=== PATIENT | male | born 1965 | race Caucasian/White ===

== ENCOUNTER → 2017-03-27 | Outpatient (POV) | payer OTHER, SELFPAY | PROVIDERS: Visit Provider Internal Medicine | DX: I10 Essential (primary) hypertension (principal); R53.83 Other fatigue; G47.33 Obstructive sleep apnea (adult) (pediatric) | CPT/HCPCS: 93005 ==

== ENCOUNTER 2017-05-13 20:15 | Emergency (ER) | payer OTHER, SELFPAY ==
[2017-05-13 23:24] VITALS: BP 130/72; PULSE 74; RESP 20; TEMP 36.9; O2SAT 98; BMI 34.3
[2017-05-13 23:34] LABS: UTC Influenza A Antigen Negative (Negative); UTC Influenza B Antigen Negative (Negative)
--- NOTE | 2017-05-14 00:10 | HMH.EDUTC ---
[facility] [place] Disposition Clinical Impression: Acute bronchitis Qualifiers: Bronchitis organism: unspecified organism Qualified Code(s): J20.9 - Acute bronchitis, unspecified Disposition: Home, Self-Care Condition on Discharge: Good Instructions: DI for Acute Bronchitis Additional Instructions: * start antibiotic due to chest symptoms. IF this is the flu, you will continue to get worse so be sure to follow up. Be sure to complete entire prescription even if feeling better. * Monitor Temp. Feeling feverish and having a fever are not the same. Fevers would be more concerning. * humidifier/vaporizer/hot steamy shower * Inhaler every 4-6 hours as needed like we discussed. If unsure how to use it, ask pharmacist to demonstrate how. Should help open airways and improve cough, wheezing, shortness of breath. * Mucinex during the day for your cough and cough suppressant only at night. Be sure to drink lots of water. Insurance may not cover a prescription of mucinex. Might be cheaper to get 400mg tablets and take 2 tablets morning, midday and evening all with lots of water. * Tessalon Perles will not cause drowsiness but use at bedtime to help stop cough so that you can get some rest * Start steroid today. Helps with inflammation therefore, cough and wheezing. Follow directions on package. Rvwd side effects. Pt reports they have taken them before. Prescriptions: Albuterol Sulfate [Albuterol HFA Inhaler] 1 - 2 puffs IH Q4-6H PRN #1 inh PRN Reason: Shortness Of Breath Or Wheezing Azithromycin [Z-Toni 250mg Tab] 250 mg PO UD DOSE PK #6 tab Benzonatate [Benzonatate 200mg Cap] 200 mg PO HS PRN #14 cap PRN Reason: Cough predniSONE [Deltasone 10mg tablet] 10 mg PO BID #10 tab Referrals: Gonzalo Ram MD [Primary Care Provider] - (Follow up IMMEDIATELY for new or worsening symptoms OR no noticeable improvement over the next 48-72 hours. 911 for difficulty breathing) Time of Disposition: 00:23 Medical Decision Making Vital Signs: 05/13/17 23:24 05/14/17 00:18 Temperature 98.5 F 98.4 F Temperature Source Temporal Artery Scan Oral Pulse Rate 78 Pulse Rate [Right Radial] 74 Respiratory Rate 20 18 Blood Pressure 128/78 Blood Pressure [Right Arm] 130/72 Blood Pressure Mean [Right Arm] 91 Blood Pressure Source [Right Arm] Automatic Cuff Blood Pressure Position [Right Arm] Sitting 02 Sat by Pulse Oximetry 98 Oxygen Delivery Method Room Air Room Air - Lab Data Lab results reviewed: Yes: I reviewed the patient's lab results. Lab Results 05/13/17 23:32: Influenza Type A Ag Negative, Influenza Type B Ag Negative - Physician Consults Physician Consulted: Dr. Ram, PCP and ER MD ramirez Time: 12:00 Reason -: Pt condition Comment/Response: Discussed HPI, PMHx, medications, exam. Feels azithromycin and prednisone are appropriate considering PMHx and current symptoms. - Mp Inquiry Pt receiving controlled substance: No [facility] [place] HPI - General Stated complaint: to be checked for flu Time Seen by Provider: 05/14/17 00:10 Mode of Arrival: Family Vehicle Source of Information: Patient Limitations: No Limitations Description of Symptoms (Recalled from Triage Doc. by RN): PT C/O FLU LIKE SYMPTOMS. HEENT Symptoms (Recalled from RN notes): Yes (FLU LIKE SYMPTOMS) Resp Symptoms (Recalled from RN notes): No Skin Symptoms (Recalled from RN notes): No MS Symptoms (Recalled from RN notes): No Functional Status (Recalled from RN notes): NA - History of Present Illness Provider Complaint: c/o I think I have the flu . Daughter came home w/ flu B. cough and chest congestion x 1 week. Sputum intermittently. Mucinex was helping. Last 2 days, cough not productive but feels like in there and needs to come out . Not sleeping well due to cough. [place] feverish today so got worried about flu.No bodyaches. Denies SOA, wheezing. Hx of HCM. Denies CP. - Related Data Previous Rx's Medication Instructions Recorded Albuterol Sulfate
[2017-05-14 00:18] VITALS: BP 128/78; PULSE 78; RESP 18; TEMP 36.9; O2SAT 97
--- NOTE | 2017-05-14 00:20 | ED_ITS ---
[facility] [place] Clinical Impression: Acute bronchitis Qualifiers: Bronchitis organism: unspecified organism Qualified Code(s): J20.9 - Acute bronchitis, unspecified Disposition: Home, Self-Care Condition on Discharge: Good Instructions: DI for Acute Bronchitis Additional Instructions: * start antibiotic due to chest symptoms. IF this is the flu, you will continue to get worse so be sure to follow up. Be sure to complete entire prescription even if feeling better. * Monitor Temp. Feeling feverish and having a fever are not the same. Fevers would be more concerning. * humidifier/vaporizer/hot steamy shower * Inhaler every 4-6 hours as needed like we discussed. If unsure how to use it, ask pharmacist to demonstrate how. Should help open airways and improve cough, wheezing, shortness of breath. * Mucinex during the day for your cough and cough suppressant only at night. Be sure to drink lots of water. Insurance may not cover a prescription of mucinex. Might be cheaper to get 400mg tablets and take 2 tablets morning, midday and evening all with lots of water. * Tessalon Perles will not cause drowsiness but use at bedtime to help stop cough so that you can get some rest * Start steroid today. Helps with inflammation therefore, cough and wheezing. Follow directions on package. Rvwd side effects. Pt reports they have taken them before. Prescriptions: Albuterol Sulfate [Albuterol HFA Inhaler] 1 - 2 puffs IH Q4-6H PRN #1 inh PRN Reason: Shortness Of Breath Or Wheezing Azithromycin [Z-Toni 250mg Tab] 250 mg PO UD DOSE PK #6 tab Benzonatate [Benzonatate 200mg Cap] 200 mg PO HS PRN #14 cap PRN Reason: Cough predniSONE [Deltasone 10mg tablet] 10 mg PO BID #10 tab Referrals: Gonzalo Ram MD [Primary Care Provider] - (Follow up IMMEDIATELY for new or worsening symptoms OR no noticeable improvement over the next 48-72 hours. 911 for difficulty breathing) Time of Disposition: 00:23 Medical Decision Making Vital Signs: 05/13/17 23:24 05/14/17 00:18 Temperature 98.5 F 98.4 F Temperature Source Temporal Artery Scan Oral Pulse Rate 78 Pulse Rate [Right Radial] 74 Respiratory Rate 20 18 Blood Pressure 128/78 Blood Pressure [Right Arm] 130/72 Blood Pressure Mean [Right Arm] 91 Blood Pressure Source [Right Arm] Automatic Cuff Blood Pressure Position [Right Arm] Sitting 02 Sat by Pulse Oximetry 98 Oxygen Delivery Method Room Air Room Air - Lab Data Lab results reviewed: Yes: I reviewed the patient's lab results. Lab Results 05/13/17 23:32: Influenza Type A Ag Negative, Influenza Type B Ag Negative - Physician Consults Physician Consulted: Dr. Ram, PCP and ER MD ramirez Time: 12:00 Reason -: Pt condition Comment/Response: Discussed HPI, PMHx, medications, exam. Feels azithromycin and prednisone are appropriate considering PMHx and current symptoms. - Mp Inquiry Pt receiving controlled substance: No [facility] [place] - General Stated complaint: to be checked for flu Time Seen by Provider: 05/14/17 00:10 Mode of Arrival: Family Vehicle Source of Information: Patient Limitations: No Limitations Description of Symptoms (Recalled from Triage Doc. by RN): PT C/O FLU LIKE SYMPTOMS. HEENT Symptoms (Recalled from RN notes): Yes (FLU LIKE SYMPTOMS) Resp Symptoms (Recalled from RN notes): No Skin Symptoms (Recalled from RN notes): No MS Symptoms (Recalled from RN notes): No Functional Status (Recalled from RN notes): NA - Histo
== END 2017-05-14 00:24 | disposition home or self-care (01) ==
PROVIDERS: Emergency Provider Nurse Practitioner Family; PCP Emergency Medicine
DX: J20.9 Acute bronchitis, unspecified (principal)
CPT/HCPCS: 87804; 99202

== ENCOUNTER → 2017-12-03 08:09 | Outpatient (CLI) | payer OTHER, SELFPAY | PROVIDERS: PCP Emergency Medicine; Visit Provider Internal Medicine Cardiovascular Disease | DX: I42.1 Obstructive hypertrophic cardiomyopathy (principal); E78.5 Hyperlipidemia, unspecified; G47.33 Obstructive sleep apnea (adult) (pediatric); I10 Essential (primary) hypertension; I25.2 Old myocardial infarction; R53.83 Other fatigue; R94.31 Abnormal electrocardiogram [ECG] [EKG] | CPT/HCPCS: 93306 ==

== ENCOUNTER → 2017-12-04 08:17 | Outpatient (POV) | payer OTHER, SELFPAY | PROVIDERS: Visit Provider Dermatology | DX: Z00.00 Encounter for general adult medical examination without abnormal findings (principal) ==

== ENCOUNTER → 2017-12-29 08:42 | Outpatient (CLI) | payer OTHER, SELFPAY ==
[2017-12-29 09:45] LABS: Anion Gap 16.9 mEq/L (5-15); Blood Urea Nitrogen 22 mg/dL (7-18); Calcium 8.8 mg/dL (8.5-10.1); Carbon Dioxide 30 mmol/L (21.0-32.0); Chloride 97 mmol/L (98-107); Creatinine,Serum 1.11 mg/dL (0.70-1.30); Estimated Glomerular Filt Rate 69 ml/min (>60); GFR (African American) 84 ML/MIN (>60); Glucose 116 mg/dL (74-106); Potassium 3.9 mmoL/L (3.5-5.1); Sodium 140 mmol/L (136-145)
== END ==
PROVIDERS: PCP Emergency Medicine; Visit Provider Urology
DX: I42.1 Obstructive hypertrophic cardiomyopathy (principal); E78.4 Other hyperlipidemia; G47.33 Obstructive sleep apnea (adult) (pediatric); I10 Essential (primary) hypertension; I25.2 Old myocardial infarction; R53.83 Other fatigue; R94.31 Abnormal electrocardiogram [ECG] [EKG]
CPT/HCPCS: 36415; 80048

== ENCOUNTER → 2018-06-08 06:13 | Outpatient (CLI) | payer OTHER, SELFPAY ==
--- NOTE | 2018-06-08 06:24 | NM_ITS ---
History and Indications: History of ND, hypertension, shortness of breath, fatigue Procedure: A she received a 0.4, with intravenous Lexiscan, resting heart rate was 60 beats per resting blood pressure 128/72, with Lexiscan maximum heart rate achieved was 88 bpm which is less than 85% of the maximum predicted heart rate and a blood pressure was 128/66. With Lexiscan no symptoms recorded. Electrocardiogram: Single electrocardiogram showed sinus rhythm inferior and lateral ST-T wave changes consider ischemia versus strain pattern, intraventricular conduction delay. With Lexiscan there is less than [address] segment depression from the baseline EKG. The EKG portion of the Lexiscan Myoview is nondiagnostic due to baseline abnormal EKG. Cardiac stress and resting SPECT images: Cardiac stress and resting SPECT images were obtained using technetium 99 Myoview 31.9 mCi at stress and 10.6 mCi at rest, gated SPECT further analysis of segmental wall motion and calculation of the ejection fraction also done. Cardiac stress and resting SPECT images show decreased tracer activity in the inferior wall which improves on the resting images suggestive of reversible ischemia. Computer derived ejection fraction is 52% with no regional wall motion abnormality, right ventricle is normal size and contractility. Conclusion: 1. The EKG portion of the Lexiscan Myoview is nondiagnostic. 2. Scintigraphic evidence of mild reversible ischemia involving the inferior wall, computer derived ejection fraction is 52% with no regional wall motion abnormality, right ventricle is normal size and contractility. 3. Abnormal Lexiscan Myoview study.
--- NOTE | 2018-06-08 07:09 | HMH.ITSHM ---
Current Home Medications as stated by this patient Danny Woodward or senior sales representative. []BYSTOLIC VARAPEMIL ASA LASIX
[2018-06-08 11:16] LABS: Alanine Aminotransferase 49 U/L (12-78); Albumin Level 3.8 gm/dL (3.4-5.0); Alkaline Phosphatase 66 U/L (46-116); Aspartate Amino Transferase 27 U/L (15-37); Bilirubin,Direct 0.1 mg/dL (0.0-0.2); Bilirubin,Indirect 0.3 mg/dL (0.0-0.9); Bilirubin,Total 0.4 mg/dL (0.2-1.0); Chol/HDL Ratio 6.1 (1-3.5); Cholesterol 232 mg/dL (140-200); HDL Cholesterol 38 mg/dL (27-67); LDL Cholesterol 178 mg/dL (0-130); Total Protein,Serum 7.3 gm/dL (6.4-8.2); Triglycerides 79 mg/dL (30-200); VLDL Cholesterol 16 mg/dL (0-40)
== END ==
PROVIDERS: Urology; PCP Emergency Medicine; Visit Provider Internal Medicine
DX: I42.1 Obstructive hypertrophic cardiomyopathy (principal); I10 Essential (primary) hypertension; R06.02 Shortness of breath; R53.83 Other fatigue; E78.49 Other hyperlipidemia
CPT/HCPCS: 36415; 78452; 80061; 80076; 93017; A9502; J2785

== ENCOUNTER → 2018-12-14 14:58 | Outpatient (CLI) | payer OTHER, SELFPAY ==
--- NOTE | 2018-12-14 15:00 | CA_ITS ---
APPROVED REPORT EXAM: Comprehensive 2D, Doppler, and color-flow Echocardiogram Lion Hunter: Ofelia Steve RVT Ht: 5 ft 6 in Wt: 225lbs BSA: 2.10 BP: 102/46 mmHg Indications: Heart Disease,Hyperlipidemia, Cardiomyopathy, Hypertension/HDD,Ex-smoker,Loop recorder 2D Dimensions LVOT 2.20 cm (M/F) 1.5-2.5 M-Mode Dimensions RVDd 2.30 cm (0.9-2.6) LA Diam 4.70 cm (1.9-4.0) LVDd 4.90 cm (3.5-5.7) Ao Diam 2.20 cm (2.0-3.7) LVDs 3.30 cm (3.5-5.7) AV Cusp 1.70 cm (1.5-2.6) IVSd 1.00 cm (0.6-1.1) PWd 1.20 cm (0.6-1.1) EF (Teich) 61.00% FS 32.70% EDV (Teich) 113.00 mL ESV (Teich) 44.10 mL LV Diastology E/A Ratio 1.3 MED E' 6.02 (< 7 cm/sec) E'/MED E' Ratio 16.40 (>14) LAT E' 5.95 (<10 cm/sec) E/LAT E' Ratio 16.60 (>14) Aortic Valve AoV Peak Joey. 154.00 (50-130 cm/s) AO Peak GR. 9.00 mmHg Mitral Valve MV E Max Joey. 98.70 (40-130 cm/s) MV A Velocity 76.50 (40-130 cm/s) E/A Ratio 1.30 Pulmonary Valve PA Accel Time 162.00 (>120 msec) Tricuspid Valve TR P. Velocity 340.00 cm/s Left Ventricle Left atrium is mildly enlarged, left ventricle is normal size, mild concentric left ventricular hypertrophy, visually estimated ejection fraction 55%, apex is not well-visualized, there appears to be mild hypokinesis involving the distal septum. Repeat study with Definity contrast is recommended. Grade 1 diastolic dysfunction seen with tissue Doppler evidence of raise left atrial pressure. Right Ventricle Right atrium and right ventricle are normal size and contractility. Aortic Valve Aortic valve is minimally thickened and fibrosed. There is no aortic stenosis aortic insufficiency. Mitral Valve Mitral valve is grossly normal, there is mild mitral regurgitation. Tricuspid Valve Tricuspid valve is grossly normal, there is mild tricuspid regurgitation. Tricuspid regurgitation jet velocity is inadequate for calculation of the right ventricular systolic pressure. Pulmonic Valve Pulmonic valve is poorly visualized. Great Vessels Aortic root is normal size. Pericardium No significant pericardial effusion noted. Conclusion 1. Technically difficult study because of the patient fact in poor acoustic windows, apex is not well-visualized, repeat study with Definity contrast is recommended. 2. Mildly enlarged left atrium, normal left ventricular size, mild concentric left ventricular hypertrophy, visually estimated ejection fraction 55%, with segmental wall motion abnormality described above. Repeat study with Definity contrast is recommended, grade 1 diastolic dysfunction seen with tissue Doppler evidence of raise left atrial pressure. 3. Mild mitral and tricuspid regurgitation 4. No significant pericardial effusion noted. Electronically signed by : Kavin Uriostegui, 12/18/2018 16:45:33
== END ==
PROVIDERS: PCP Emergency Medicine; Visit Provider Internal Medicine
DX: I42.1 Obstructive hypertrophic cardiomyopathy (principal)
CPT/HCPCS: 93306

== ENCOUNTER → 2019-01-04 07:38 | Outpatient (CLI) | payer OTHER, SELFPAY ==
--- NOTE | 2019-01-04 07:39 | CA_ITS ---
APPROVED REPORT EXAM: Limited 2D Echocardiogram with contrast Land Surveyor Manager: Gina Mabry RDCS Ht: 5 ft 6 in Wt: 225lbs BSA: 2.10 BP: 102/46 mmHg Indications: definity limited echo follow up Cardiomyopathy Left Ventricle Left atrium is normal size, left ventricle is normal size, mild concentric left ventricular hypertrophy, visually estimated ejection fraction 55% with no regional wall motion abnormality. Right Ventricle Right atrium and right ventricular normal size and contractility. Aortic Valve Aortic valve is minimally thickened and fibrosed. Mitral Valve Mitral valve is grossly normal. Tricuspid Valve Tricuspid valve is grossly normal. Pulmonic Valve Pulmonic valve is poorly visualized. Great Vessels Aortic root is normal size. Pericardium No significant pericardial effusion noted. Conclusion 1. Normal left ventricular size, preserved left ventricular systolic function, visually estimated ejection fraction 55% with no regional wall motion abnormality. Definitely contrast was utilized to delineate the endocardial surfaces. 2. No significant pericardial effusion noted. Electronically signed by : Kavin Uriostegui, 01/05/2019 06:21:01
== END ==
PROVIDERS: PCP Emergency Medicine; Visit Provider Physician Assistant
DX: I42.1 Obstructive hypertrophic cardiomyopathy (principal); E78.5 Hyperlipidemia, unspecified; I10 Essential (primary) hypertension
CPT/HCPCS: 93308; Q9957

== ENCOUNTER → 2019-02-12 08:21 | Outpatient (CLI) | payer OTHER, SELFPAY ==
[2019-02-12 09:11] LABS: Alanine Aminotransferase 56 U/L (12-78); Albumin Level 3.9 gm/dL (3.4-5.0); Alkaline Phosphatase 83 U/L (46-116); Aspartate Amino Transferase 23 U/L (15-37); Bilirubin,Direct 0.1 mg/dL (0.0-0.2); Bilirubin,Indirect 0.5 mg/dL (0.0-0.9); Bilirubin,Total 0.6 mg/dL (0.2-1.0); Chol/HDL Ratio 4.5 (1-3.5); Cholesterol 157 mg/dL (140-200); HDL Cholesterol 35 mg/dL (27-67); LDL Cholesterol 106 mg/dL (0-130); Triglycerides 81 mg/dL (30-200); VLDL Cholesterol 16 mg/dL (0-40)
== END ==
PROVIDERS: Visit Provider Nurse Practitioner Family
DX: E78.49 Other hyperlipidemia (principal)
CPT/HCPCS: 36415; 80061; 80076

== ENCOUNTER → 2019-07-20 10:16 | Outpatient (CLI) | payer OTHER, SELFPAY ==
[2019-07-20 11:40] LABS: Chloride 105 mmol/L (98-107); Sodium 139 mmol/L (136-145)
[2019-07-20 11:43] LABS: Alanine Aminotransferase 37 U/L (12-78); Alkaline Phosphatase 78 U/L (38-126); Aspartate Amino Transferase 32 U/L (17-59); Bilirubin,Indirect 0.5 mg/dL (0.0-0.9); Bilirubin,Total 0.5 mg/dl (0.2-1.3); Bilirubin,Unconjugated 0.6 mg/dL (0.0-1.1); Blood Urea Nitrogen 25 mg/dl (9-20); Carbon Dioxide 24 mmol/L (22.0-30.0); Cholesterol 141 mg/dl (140-200); Estimated Glomerular Filt Rate 88 ml/min (>60); GFR (African American) 106 ML/MIN (>60); Triglycerides 85 mg/dl (30-150); VLDL Cholesterol 17 mg/dL (0-40)
[2019-07-20 11:44] LABS: Albumin Level 4.2 g/dl (3.5-5.0); Calcium 9.2 mg/dl (8.4-10.2); Chol/HDL Ratio 4.3 (1-3.5); Glucose 99 mg/dl (74-100); HDL Cholesterol 33 mg/dl (40-60); Total Protein,Serum 6.9 g/dl (6.3-8.2)
[2019-07-20 11:55] LABS: Direct LDL Cholesterol 107.73 mg/dL (100-129)
== END ==
PROVIDERS: Visit Provider Physician Assistant
DX: R06.02 Shortness of breath (principal); R94.31 Abnormal electrocardiogram [ECG] [EKG]; E78.5 Hyperlipidemia, unspecified; I10 Essential (primary) hypertension; I42.1 Obstructive hypertrophic cardiomyopathy; R53.83 Other fatigue; G47.33 Obstructive sleep apnea (adult) (pediatric)
CPT/HCPCS: 36415; 80048; 80061; 80076

== ENCOUNTER → 2020-01-04 07:38 | Outpatient (CLI) | payer OTHER, SELFPAY ==
--- NOTE | 2020-01-04 07:39 | CA_ITS ---
APPROVED REPORT EXAM: Comprehensive 2D, Doppler, and color-flow Echocardiogram with contrast Mill Operator: Gina Mabry RDCS Ht: 5 ft 6 in Wt: 229lbs BSA: 2.12 BP: 137/70 mmHg Indications: HTN,SOA,DIAZ,OBESITY,DOT PHYSICAL 2D Dimensions LVOT 1.58 cm (M/F) 1.5-2.5 M-Mode Dimensions RVDd 2.82 cm (0.9-2.6) LVDd 4.35 cm (3.5-5.7) LVDs 2.97 cm (3.5-5.7) IVSd 0.79 cm (0.6-1.1) PWd 0.97 cm (0.6-1.1) EF (Teich) 60.00% FS 31.70% EDV (Teich) 85.40 mL ESV (Teich) 34.20 mL LV Diastology E/A Ratio 1.89 Aortic Valve LVOT Max 143.00 (70-110 cm/s) LVOT VTI 30.24 cm Mitral Valve MV A Velocity 44.00 (40-130 cm/s) Left Ventricle Left atrium is mildly enlarged, left ventricle is normal size, mild concentric left ventricular hypertrophy, visually estimated ejection fraction 55% with no regional wall motion abnormality, Definity contrast was utilized to delineate the endocardial surfaces, there is no left ventricular thrombus seen, grade 1 diastolic dysfunction seen with tissue Doppler evidence of raise left atrial pressure. Right Ventricle Right atrium and right ventricle are mildly enlarged with normal contractility. Aortic Valve Aortic valve is minimally thickened and fibrosed, there is no aortic stenosis or aortic insufficiency. Mitral Valve Mitral valve is minimally thickened, there is mild mitral regurgitation. Tricuspid Valve Tricuspid valve is grossly normal, there is mild tricuspid regurgitation. Pulmonic Valve Pulmonic valve is poorly visualized. Great Vessels Aortic root is normal size. Pericardium No significant pericardial effusion noted. Conclusion 1. Mildly enlarged left atrium, normal left ventricular size, mild concentric left ventricular hypertrophy, visually estimated ejection fraction 55% with no regional wall motion abnormality, grade 1 diastolic dysfunction seen with tissue Doppler evidence of raise left atrial pressure, Definity contrast was utilized to delineate the endocardial surfaces, there is no left ventricular thrombus seen. 2. Mildly enlarged right ventricle with normal contractility. 3. Mild mitral and tricuspid regurgitation. 4. No significant pericardial effusion noted. Electronically signed by : Kavin Uriostegui, 01/04/2020 20:06:15
[2020-01-04 09:51] LABS: Alanine Aminotransferase 40 U/L (12-78); Albumin Level 4.2 g/dl (3.5-5.0); Alkaline Phosphatase 93 U/L (38-126); Anion Gap 12.2 mEq/L (5-15); Aspartate Amino Transferase 32 U/L (17-59); Bilirubin,Direct 0.1 mg/dl (0.0-0.4); Bilirubin,Indirect 0.5 mg/dL (0.0-0.9); Bilirubin,Total 0.6 mg/dl (0.2-1.3); Bilirubin,Unconjugated 0.5 mg/dL (0.0-1.1); Blood Urea Nitrogen 26 mg/dl (9-20); Calcium 9.3 mg/dl (8.4-10.2); Carbon Dioxide 28 mmol/L (22.0-30.0); Chloride 103 mmol/L (98-107); Chol/HDL Ratio 3.9 (1-3.5); Cholesterol 153 mg/dl (140-200); Estimated Glomerular Filt Rate 88 ml/min (>60); GFR (African American) 106 ML/MIN (>60); Glucose 115 mg/dl (74-100); HDL Cholesterol 39 mg/dl (40-60); Potassium 4.2 mmoL/L (3.5-5.1); Sodium 139 mmol/L (136-145); Triglycerides 80 mg/dl (30-150); VLDL Cholesterol 16 mg/dL (0-40)
[2020-01-04 10:02] LABS: Direct LDL Cholesterol 103.49 mg/dL (100-129)
== END ==
PROVIDERS: PCP Emergency Medicine; Visit Provider Physician Assistant
DX: R06.02 Shortness of breath (principal); I10 Essential (primary) hypertension; I42.1 Obstructive hypertrophic cardiomyopathy; E78.5 Hyperlipidemia, unspecified; G47.33 Obstructive sleep apnea (adult) (pediatric)
CPT/HCPCS: 36415; 80048; 80061; 80076; 93306; Q9957

== ENCOUNTER → 2020-06-14 09:19 | Outpatient (CLI) | payer OTHER, SELFPAY ==
[2020-06-14 10:29] LABS: Alanine Aminotransferase 48 U/L (12-78); Albumin Level 4.4 g/dl (3.5-5.0); Alkaline Phosphatase 82 U/L (38-126); Aspartate Amino Transferase 37 U/L (17-59); Bilirubin,Indirect 0.8 mg/dL (0.0-0.9); Bilirubin,Total 0.8 mg/dl (0.2-1.3); Bilirubin,Unconjugated 0.8 mg/dL (0.0-1.1); Chol/HDL Ratio 4.2 (1-3.5); Cholesterol 146 mg/dl (140-200); HDL Cholesterol 35 mg/dl (40-60); Total Protein,Serum 7.3 g/dl (6.3-8.2); Triglycerides 81 mg/dl (30-150); VLDL Cholesterol 16 mg/dL (0-40)
[2020-06-14 10:40] LABS: Direct LDL Cholesterol 94.43 mg/dL (100-129)
[2020-06-14 10:46] LABS: Free T4 (Free Thyroxine) 0.94 ng/dl (0.78-2.19)
[2020-06-14 11:01] LABS: Thyroid Stimulating Hormone 1.98 uIU/mL (0.465-4.68)
== END ==
PROVIDERS: Emergency Medicine; Nurse Practitioner Family; Visit Provider Physician Assistant
DX: R06.02 Shortness of breath (principal); R53.83 Other fatigue; E78.5 Hyperlipidemia, unspecified; I10 Essential (primary) hypertension; I25.2 Old myocardial infarction; I42.1 Obstructive hypertrophic cardiomyopathy; G47.33 Obstructive sleep apnea (adult) (pediatric); K59.00 Constipation, unspecified
CPT/HCPCS: 36415; 80061; 80076; 84439; 84443

== ENCOUNTER → 2020-12-14 08:46 | Outpatient (CLI) | payer OTHER, SELFPAY ==
[2020-12-14 09:10] LABS: Basophils % 0.6 % (0.1-2.0); Eosinophils # 0.1 K/mm3 (0.0-0.4); Eosinophils % 2.1 % (0.1-12.0); Hematocrit 39.6 % (42.0-52.0); Hemoglobin 14.1 g/dL (14.1-18.0); Lymphocytes # 1.7 K/mm3 (0.7-4.5); Lymphocytes % 26.1 % (10-50); Mean Corpuscular HGB Conc 35.5 g/dL (31.8-35.4); Mean Corpuscular Volume 92.9 fl (80-94); Mean Platelet Volume 8.2 fl (7.4-10.4); Monocytes # 0.5 K/mm3 (0.1-1.0); Monocytes % 7.9 % (1.7-9.3); Neutrophils # 4.1 K/mm3 (1.8-7.8); Neutrophils % 63.2 % (37.0-80.0); Platelet Count 219 K/mm3 (142-424); Red Blood Count 4.27 M/mm3 (4.60-6.20); Red Cell Distribution Width 13.1 % (11.5-17.5); White Blood Count 6.5 K/mm3 (4.8-10.8)
[2020-12-14 10:22] LABS: Chloride 106 mmol/L (98-107)
[2020-12-14 10:23] LABS: Potassium 4.6 mmoL/L (3.5-5.1); Sodium 142 mmol/L (136-145)
[2020-12-14 10:25] LABS: Alanine Aminotransferase 38 U/L (12-78); Alkaline Phosphatase 99 U/L (38-126); Anion Gap 14.6 mEq/L (5-15); Aspartate Amino Transferase 30 U/L (17-59); Bilirubin,Direct 0.1 mg/dl (0.0-0.4); Bilirubin,Indirect 0.2 mg/dL (0.0-0.9); Bilirubin,Total 0.3 mg/dl (0.2-1.3); Bilirubin,Unconjugated 0.2 mg/dL (0.0-1.1); Blood Urea Nitrogen 28 mg/dl (9-20); Carbon Dioxide 26 mmol/L (22.0-30.0); Cholesterol 141 mg/dl (140-200); Estimated Glomerular Filt Rate 87 ml/min (>60); GFR (African American) 106 ML/MIN (>60); Glucose 119 mg/dl (74-100); Total Protein,Serum 6.6 g/dl (6.3-8.2); Triglycerides 151 mg/dl (30-150); VLDL Cholesterol 30 mg/dL (0-40)
[2020-12-14 10:26] LABS: Chol/HDL Ratio 4.5 (1-3.5); HDL Cholesterol 31 mg/dl (40-60)
[2020-12-14 10:37] LABS: Direct LDL Cholesterol 83.92 mg/dL (100-129)
== END ==
PROVIDERS: Visit Provider Nurse Practitioner Family
DX: I42.1 Obstructive hypertrophic cardiomyopathy (principal); E66.9 Obesity, unspecified; I10 Essential (primary) hypertension
CPT/HCPCS: 36415; 80048; 80061; 80076; 85025

== ENCOUNTER → 2021-01-04 08:12 | Outpatient (CLI) | payer OTHER, SELFPAY ==
--- NOTE | 2021-01-04 | CA_ITS ---
APPROVED REPORT Exam: Exercise Treadmill Technologist: Malini Vaca, Ht: 5 ft 6 in Wt: 223 lbs BSA: 2.09 m2 HR: 67 bpm BP: 160/71 mmHg Rhythm: NSR,ST-T ABNS INFERIORLY AND LATERALLY Medical History Medical History: HTN, Hyperlipidemia Medications: Aspirin,,,,, Atenolol,,,,, Verapamil,,,,, Metformin,,,,, AtorvaASTATIN,,,,, Furosemide,,,,, Allergies: PENICILLIN, METOPROLOL Cardiac Risk Factors: HTN, Hyperlipidemia, Diabetes (insulin), Smoking Stress Test Details Test: Tereza HR Resting HR: 63 bpm Max Heart Rate (APMHR): 164 bpm Max HR Achieved: 140 bpm Target HR (85% APMHR): 139 bpm % of APMHR: 85 Recovery HR: 75 bpm BP Resting BP: 148/73 mmHg Max BP: 190/70 mmHg Recovery BP: 159.0/59.0 mmHg ECG Resting ECG: NSR,ST-T ABNS INFERIORLY AND LATERALLY Clinical Exercise duration: 07:06 min Highest Stage Achieved: Exercise capacity: 10.1 METs Stress ECG Conclusion EXERCISED 7:06 ON TEREZA PROTOCOL. MAX HR:140, % OF PM 85%, MAX BP 190/70, METS 10.1, TEST STOPPED DUE TO SOA, LEG FATIGUE. NO CP. NO ARRHYTHMIAS/ECTOPY. EXAGGERATION OF BASELINE ST-T ABNS. NON DIAGNOSTIC GXT DUE TO BASELINE ABNS. GXT ONLY (NO IMAGING). If clinically indicated repeat study with myocardial perfusion imaging is recommended. Test Summary REST . . . . . . . Sitting REST 04:18 0.0 0.0 63 . 148/ 73 . . Stage 1 01:00 10.0 1.7 101 . . . . Stage 1 02:00 10.0 1.7 109 . . . . Stage 1 03:00 10.0 1.7 108 . 155/ 70 . . Stage 2 01:00 12.0 2.5 116 . . . . Stage 2 02:00 12.0 2.5 123 . 165/ 72 . . Stage 2 03:00 12.0 2.5 127 . 165/ 72 . . Stage 3 01:00 14.0 3.4 138 . . . . Stage 3 01:06 14.0 3.4 140 . . . Stop exercise at 07:06 RECOVERY 01:00 0.0 0.0 116 . 190/ 70 . . RECOVERY 02:00 0.0 0.0 89 . 190/ 70 . . RECOVERY 03:00 0.0 0.0 82 . 190/ 70 . . RECOVERY 04:00 0.0 0.0 75 . 132/ 78 . . RECOVERY 05:00 0.0 0.0 75 . 132/ 78 . . RECOVERY 05:53 0.0 0.0 74 . 158/ 59 . . Electronically signed by : Kavin Uriostegui MD 01/04/2021 09:54:59
== END ==
PROVIDERS: PCP Emergency Medicine; Visit Provider Physician Assistant
DX: R06.02 Shortness of breath (principal)
CPT/HCPCS: 93017

== ENCOUNTER → 2021-01-05 11:42 | Outpatient (CLI) | payer OTHER, SELFPAY ==
--- NOTE | 2021-01-05 | CA_ITS ---
APPROVED REPORT Exam: Pharmacologic Technologist: Malini Vaca, Ht: 5 ft 6 in Wt: 223 lbs BSA: 2.09 m2 HR: 60 bpm BP: 144/77 mmHg Rhythm: SINUS YAIMA, NSSTW Medical History Medical History: HTN, , Hyperlipidemia Medications: Aspirin,,,,, Atenolol,,,,, AtorvaASTATIN,,,,, MeFORMIN,,,,, Furosemide,,,,, Allergies: PENICILLIN, METOPROLOL Cardiac Risk Factors: HTN, Hyperlipidemia Stress Test Details Test: LEXISCAN HR Resting HR: 59 bpm Max Heart Rate (APMHR): 164.021436 bpm Max HR Achieved: 94 bpm Target HR (85% APMHR): 139.981344 bpm % of APMHR: 57.32 Recovery HR: 79 bpm BP Resting BP: 144/77 mmHg Max BP: 144/77 mmHg Recovery BP: 138.0/78.0 mmHg ECG Resting ECG: SINUS YAIMA, NSSTTW Clinical Reason for Termination: Completed Protocol Exercise duration: 04:01 min Highest Stage Achieved: Stress ECG Conclusion NO SYMPTOMS, NO ARRHYTHMIAS/ECTOPY, <1.5MM ST SEGMENT CHANGES, NON DIAGNOSTIC. Test Summary RECOVERY 02:09 . . 77 . 138/ 78 . . Stage 1 01:00 . . 89 . . . . Stage 2 01:00 . . 90 . 143/ 72 . . Stage 3 01:00 . . 81 . 134/ 74 . . Stage 4 01:00 . . 83 . . . . Stage 4 01:01 . . 81 . . . Stop exercise at 04:01 RECOVERY 01:00 . . 78 . . . . RECOVERY 02:00 . . 78 . 138/ 78 . . RECOVERY 02:09 . . 77 . 138/ 78 . . Electronically signed by : Kavin Uriostegui MD 01/07/2021 18:49:46
--- NOTE | 2021-01-05 11:47 | NM_ITS ---
APPROVED REPORT Exam: Nuclear Stress Test Indication: abn stress test..hypertension..high cholesterol Patient Location: Outpatient Stress Tech: Malini Vaca [place] Tech:ZEINAB Manzanares RT(R)(N) Ht: 5 ft 6 in Wt: 215 lbs HR: 60 bpm BP: 144/77 mmHg BSA: 2.06 m2 BMI: 34.6 History: abn stress test..hypertension..high cholesterol Procedure: Patient received a 0.4 mg of intravenous Lexiscan, resting heart rate 60 bpm, resting blood pressure 144/77 mmHg, with Lexiscan maximum heart rate achived was 88 bpm which is Less than 85 % of the maximum predicted heart rate and blood pressure was 143/72 mmHg. With Lexiscan, patient denied any complaint of chest pain. Electrocardiogram Resting electrocardiogram showed sinus rhythm, anterolateral ST-T wave changes consider subendocardial ischemia, with Lexiscan there is less than 1.[address] segment depression noted from the baseline EKG. The EKG portion of the Lexiscan is nondiagnostic due to baseline abnormal EKG. Cardiac Stress and Resting SPECT Images: Cardiac Stress and Resting SPECT images were obtained using technetium 99m Myoview 32.9 mCi stress and 10.44 mCi at rest. Gated SPECT for analysis of segmental wall motion and calculation of the ejection fraction also done, prone images were also obtained. Cardiac stress and resting SPECT images show uniform myocardial activity without segmental perfusion abnormality, computer derived ejection fraction 56% with no regional wall motion abnormality, right ventricle is normal size and contractility. However there is transient ischemic dilatation of the left ventricle is reported in the study, which appears to be artifactual. Conclusion: 1. The EKG portion of the Lexiscan is nondiagnostic due to baseline abnormal EKG. 2. No scintigraphic evidence of reversible ischemia seen, computer derived ejection fraction is 56% with no regional wall motion abnormality, however there is transient ischemic dilatation reported in the study which appears to be artifactual. 3. Likely normal Lexiscan Myoview study. Electronically signed by : Kavin Uriostegui MD 01/07/2021 18:57:05
== END ==
PROVIDERS: PCP Emergency Medicine; Visit Provider Nurse Practitioner Family
DX: I25.2 Old myocardial infarction (principal)
CPT/HCPCS: 78452; 93017; A9502; J2785

== ENCOUNTER → 2021-05-09 12:45 | Outpatient (CLI) | payer OTHER, SELFPAY | PROVIDERS: PCP Emergency Medicine; Visit Provider Nurse Practitioner Family | DX: G47.33 Obstructive sleep apnea (adult) (pediatric) (principal); I10 Essential (primary) hypertension; I25.2 Old myocardial infarction; I42.1 Obstructive hypertrophic cardiomyopathy; Z68.36 Body mass index [BMI] 36.0-36.9, adult | CPT/HCPCS: 94762 ==

== ENCOUNTER → 2021-05-30 08:47 | Outpatient (CLI) | payer OTHER, SELFPAY | PROVIDERS: Visit Provider Surgery | DX: Z01.812 Encounter for preprocedural laboratory examination (principal); Z11.52 Encounter for screening for COVID-19; Z12.11 Encounter for screening for malignant neoplasm of colon | CPT/HCPCS: C9803; U0003; U0005 ==

== ENCOUNTER 2021-06-01 09:04 | Day surgery (SDC) | payer OTHER, SELFPAY ==
[2021-05-30 10:37] VITALS: BMI 34.7
[2021-06-01 09:24] VITALS: BP 152/70; PULSE 67; RESP 18; TEMP 36.7; O2SAT 97
--- NOTE | 2021-06-01 09:46 | P.PN_ITS ---
[facility] Anesthesia Checklist - Patient Identification Patient Identification: Arm Band - Structural Data Admitted From: Home Planned Operative Procedure/s: colonoscopy Consent for Planned Operative Procedure(s) Verified: Yes Verified Documents: Surgical Consent, History and Physical - NPO Status Verified Time NPO: 00:00 - Additional verifications Anesthesia Reactions: No - Airway Assessment C-Spine Mobility Assessed: Yes (mp2) TMJ Mobility Assessed: Yes Dentition: Poor Dentition - Neurological Assessment Level of Consciousness: Awake, Alert - Anesthesia Plan Anesthesia Risk discussed: Yes Anesthesia Plan: Verified ASA Class: III Anesthesia Type: [facility] History I have reviewed the patient's past medical history: Yes Medical History: Reports:: Cardiomyopathy, Hyperlipidemia, Hypertension, Myocardial Infarction Denies:: Cancer, Diabetes Mellitus Type 1, Diabetes Mellitus Type 2, Internal Pacemaker, MRSA, Seizures *Have you ever received a pneumonia vaccine?: No *Have you received a flu vaccine this season?: No Other Medical History: Reports: Other Anesthesia experience/problems:: nac Other Surgeries: Yes: Angiogram, Cardiac Catheterization, Cardiac Surgery, Colonoscopy, Other (nonfunctioning loop recorder). No: Pacemaker Amputation: No Fractures: Yes - *Social History Last grade of school completed: High school graduate Smoking Status: Never smoker Tobacco Type: cigarettes # Packs/Day (cigarettes): 1 #Yrs smoked (if former smoker): 10 Smoking End Date: 24 YRS AGO Alcohol Intake: never Alcohol Intake Frequency:: other Substance Use Type: denies use *Occupational Status:: employed Housing: house Household Members: spouse *Travel in the last 8 weeks: None Family Hx:: Cancer
[2021-06-01 09:53] VITALS: O2SAT 97
--- NOTE | 2021-06-01 10:22 | HMH.SCOPE ---
- Procedure: Date: 06/01/21 Patient Date of :: 1965 Procedure Performed:: Total colonoscopy to terminal ileum with polypectomy using biopsy forceps Indications:: Patient is a 55-year-old male. He had undergone colonoscopy in 2012 which revealed hyperplastic polyps, 2016 revealed a descending colon sessile serrated adenoma, 2019 revealed several hyperplastic polyps and a 10 mm sigmoid tubular adenoma. He does have a family history of colon cancer in his grandfather. Performing Provider:: Jatin Banda MD Referring Provider:: Gus Ram MD Sedation:: MAC sedation Procedure:: Patient was taken to endoscopy procedure room. He was positioned in lateral decubitus position. Adequate intravenous sedation was achieved with anesthesia titration of propofol. Variable stiffness Olympus colonoscope was inserted via the anus. It Was advanced to the cecum. Ileocecal valve and appendiceal orifice were clearly identified. Is advanced a short distance into the terminal ileum which appeared grossly normal. Colonoscope was slowly withdrawn through the colon with careful surveillance. Within the rectum there was a very subtle small hyperplastic appearing polyp removed with cold biopsy forceps. Retroflexion within the rectum revealed internal anal papilla and nonbleeding hemorrhoids. Colonoscope was withdrawn. Findings:: Subtle hyperplastic appearing rectal polyp Internal hemorrhoids, nonbleeding with anal papilla Recommendations:: Likely repeat colonoscopy 5 years Complications:: None immediately apparent Estimated blood obtained (mL): 1
[2021-06-01 10:25] VITALS: BP 123/64; PULSE 70; RESP 16; TEMP 36.2; O2SAT 95
[2021-06-01 10:35] VITALS: BP 132/69; PULSE 63; RESP 18; TEMP 36.2; O2SAT 96
[2021-06-01 10:45] VITALS: BP 130/63; PULSE 64; RESP 18; TEMP 36.2; O2SAT 94
[2021-06-01 11:02] VITALS: BP 123/72; PULSE 62; RESP 18; TEMP 36.2; O2SAT 98
== END 2021-06-01 11:02 | disposition home or self-care (01) ==
LOC: OUTP 09:05
PROVIDERS: PCP Emergency Medicine; Visit Provider Surgery
PROC: 0DJD8ZZ Inspection of Lower Intestinal Tract, Via Natural or Artificial Opening Endoscopic (ICD-10-PCS; CPT 45380; principal; 2021-06-01 10:00)
DX: Z12.11 Encounter for screening for malignant neoplasm of colon (principal); D12.8 Benign neoplasm of rectum; K64.9 Unspecified hemorrhoids; Z86.010 Personal history of colon polyps; I10 Essential (primary) hypertension; Z87.891 Personal history of nicotine dependence; Z88.0 Allergy status to penicillin; Z88.8 Allergy status to other drugs, medicaments and biological substances; K62.1 Rectal polyp; Z79.82 Long term (current) use of aspirin; Z79.899 Other long term (current) drug therapy
CPT/HCPCS: 45380

== ENCOUNTER → 2021-08-13 16:29 | Outpatient (CLI) | payer OTHER, SELFPAY | PROVIDERS: PCP Emergency Medicine; Visit Provider Emergency Medicine | DX: M54.50 Low back pain, unspecified (principal) ==

== ENCOUNTER → 2021-08-17 08:02 | Outpatient (CLI) | payer OTHER, SELFPAY ==
--- NOTE | 2021-08-17 08:02 | MR_ITS ---
FINAL REPORT CLINICAL HISTORY: back pain. RIGHT SIDED HIP PAIN XYEARS. FINDINGS: Multiplanar MR imaging of the lumbar spine was performed without contrast. On the sagittal T2-weighted images, disc degeneration is seen at multiple levels. There are mild endplate changes at multiple levels. The vertebral alignment is normal. There is no evidence of fracture. There are multiple hemangiomas. There is a partially visualized cyst in the mid sacral spinal canal. The conus has an unremarkable appearance. No significant canal stenosis is identified. L1-2: No significant central canal stenosis or neuroforaminal narrowing. L2-3: No significant central canal stenosis or neuroforaminal narrowing. L3-4: No significant central canal stenosis or neuroforaminal narrowing. L4-5: An annular bulge is present. There is mild bilateral neural foraminal narrowing. No significant central canal stenosis. L5-S1: There is an annular disc bulge with facet arthropathy. No significant central canal stenosis. There is mild right neuroforaminal narrowing. IMPRESSION: Multilevel degenerative disc disease and spondylosis with areas of neural foraminal narrowing. Partially visualized cyst in the mid sacral spinal canal. Reviewed, Interpreted and Dictated by Jatin Ni III, MD Transcribed by Leigh Richmond Authenticated by Jatin Ni III, MD on 08/17/2021 09:52:10 AM [facility]
== END ==
PROVIDERS: PCP Emergency Medicine; Visit Provider Emergency Medicine
DX: M54.9 Dorsalgia, unspecified (principal); M54.50 Low back pain, unspecified
CPT/HCPCS: 72148; 76376

== ENCOUNTER → 2021-08-21 11:59 | Outpatient (POV) | payer OTHER, SELFPAY ==
[2021-08-21 12:14] VITALS: BP 138/77; PULSE 63; RESP 20; TEMP 36.7; O2SAT 96; BMI 34.0
--- NOTE | 2021-08-21 13:00 | HMH.PMCON ---
Assessment and Plan - Assessment and plan all Dx Assessment and Plan for all problems:: This patient is a very pleasant 56-year-old male who comes our clinic today for initial evaluation regarding his right posterior hip pain that he terms hip pain . However after further examination the patient has extreme point tenderness over the right SI joint. No pain involving the hip joint. Patient describes the pain as constant, dull, sharp at times. Patient states pain increases significantly when walking any distance. Also, when sitting for any length of time patient says he has to lean over onto the left buttock to get out of pain. Patient's Mp #[id number] has been reviewed appropriate. Discussed in detail with the patient regarding his right posterior hip pain. Discussed right SI joint injection for treatment. I discussed risk and benefits with the patient. He wishes to proceed. Is awake alert [place] x3. In no acute distress. Flexion-extension lumbar spine somewhat guarded secondary to right lumbar pain. Deep tendon reflexes upper and lower extremities normal. Motor strength upper and lower extremities normal. There is no gross sensory deficit. Gait is normal. Right sacroiliitis. I will schedule the patient today for right SI joint injection. I discussed in detail the injection he wishes to proceed. HPI - Data of Consult Patient: new to practice Consult date: 08/21/21 Requesting Physician: William Burk CRNA - Consult Narrative Reason for consult: Right posterior hip pain History of present illness: Mr. Woodward is a 56 year old male CC: William Burk CRNA [facility] History Medical History: Reports:: Cardiomyopathy, Hyperlipidemia, Hypertension, Myocardial Infarction Denies:: Cancer, Diabetes Mellitus Type 1, Diabetes Mellitus Type 2, Internal Pacemaker, MRSA, Seizures *Have you ever received a pneumonia vaccine?: No *Have you received a flu vaccine this season?: Yes Other Medical History: Reports: Arthritis, Other Other Surgeries: Yes: Angiogram, Cardiac Catheterization, Cardiac Surgery, Colonoscopy, Other (nonfunctioning loop recorder). No: Pacemaker Amputation: No Fractures: Yes - *Social History Smoking Status: Never smoker Tobacco Type: cigarettes # Packs/Day (cigarettes): 1 #Yrs smoked (if former smoker): 10 Alcohol Intake: never Alcohol Intake Frequency:: other Substance Use Type: denies use *Occupational Status:: employed Housing: house Household Members: other *Travel in the last 8 weeks: None Family Hx:: Cancer Meds Home Medications Medication Instructions Recorded Confirmed Type Aspirin [Low Dose Aspirin EC] 81 mg PO DAILY 05/03/19 07/31/21 History Atorvastatin Calcium [Lipitor 40mg See Rx Instructions .ROUTE .COMPLEX 05/30/21 07/31/21 History Tab] Meloxicam 15 mg PO DAILY 05/30/21 07/31/21 History diclofenac sodium 1 % topical gel 2 g TOPICAL QID #100 g 07/31/21 07/31/21 Rx lidocaine 5 % topical patch 1 patch TOPICAL DAILY #30 each 07/31/21 07/31/21 Rx methylprednisolone 4 mg tablets in See Rx Instructions PO PER PKG DIR 07/31/21 07/31/21 Rx a dose pack #21 tab metformin 500 mg tablet See Rx Instructions .ROUTE 08/16/21 Rx .COMPLEX #60 tablet atenolol 100 mg tablet See Rx Instructions .ROUTE 08/17/21 Rx .COMPLEX #60 tablet furosemide 40 mg tablet See Rx Instructions .ROUTE 08/17/21 Rx .COMPLEX #30 tablet verapamil 120 mg tablet,extended See Rx Instructions .ROUTE 08/17/21 Rx release .COMPLEX #30 tablet Allergies Allergy/AdvReac Type Severity Reaction Status Date / Time Penicillins Allergy Mild unkn Verified 07/31/21 11:20 metoprolol AdvReac Intermediate hypotension Verified 07/31/21 11:20 Objective Vital signs: Temp Pulse Resp BP Pulse Ox 98.1 F 63 20 138/77 96 08/21/21 12:14 08/21/21 12:14 08/21/21 12:14 08/21/21 12:14 08/21/21 12:14 Opioid Risk Tool - Opioid Risk Tool-Male Family hx alcohol abuse: N Family hx
== END ==
PROVIDERS: Visit Provider Nurse Anesthetist, Certified Registered
DX: M46.1 Sacroiliitis, not elsewhere classified (principal)
CPT/HCPCS: 99202; G0463

== ENCOUNTER 2021-08-31 14:42 | Day surgery (SDC) | payer OTHER, SELFPAY ==
[2021-08-31 15:13] VITALS: BP 125/60; PULSE 64; RESP 18; TEMP 36.7; O2SAT 97; BMI 34.0
[2021-08-31 15:32] VITALS: BP 166/81; PULSE 66; RESP 18; O2SAT 94
[2021-08-31 15:36] VITALS: BP 161/87; PULSE 68; RESP 18; O2SAT 94
--- NOTE | 2021-08-31 15:44 | HMH.PMPROC ---
- Procedure Date: 08/31/21 Time: 15:44 Anesthesiologist:: Saeid Campos MD Complications:: None Pre-procedure Diagnosis:: Sacroiliitis Post-procedure Diagnosis:: Same Indications for Procedure:: Patient is a pleasant 56-year-old white male who we have been treating for right-sided hip pain. He is tender over his right SI joint. Is positive Henrique's test on the right side. Is positive Hobgood's test on the right side. He has positive SI joint compression test on the right side. We will plan on right SI joint injection under fluoroscopy today to help with his pain symptoms. Procedure Details:: Right SI joint injection under fluoroscopy Informed consent was obtained and the risks and benefits of the procedure was going to the patient. Patient was taken to the procedure room. Patient was placed prone on the procedure table. The right hip was prepped using ChloraPrep. The skin and subcutaneous tissues were anesthetized using lidocaine. I placed a 22-gauge spinal needle into the inferior aspect of the right SI joint. Needle placement was confirmed with dye. After this we injected 5 mL bupivacaine 0.25% and Depo-Medrol 40 mg into the right SI joint. The patient tolerated the procedure well with no complication. Plan and Disposition:: We will follow-up with him in 2 weeks. Will reevaluate symptoms at that time.
[2021-08-31 15:45] VITALS: BP 133/67; PULSE 60; RESP 20; O2SAT 97
== END 2021-08-31 15:45 | disposition home or self-care (01) ==
LOC: SC.PAINP 14:43
PROVIDERS: PCP Emergency Medicine; Visit Provider Anesthesiology
DX: M46.1 Sacroiliitis, not elsewhere classified (principal)
CPT/HCPCS: 27096; G0260; J1040; Q9966

== ENCOUNTER → 2021-09-20 13:59 | Outpatient (POV) | payer OTHER, SELFPAY ==
[2021-09-20 14:05] VITALS: BP 144/54; PULSE 68; RESP 20; O2SAT 98; BMI 32.9
--- NOTE | 2021-09-20 14:36 | HMH.PAINSOAP ---
[facility] Pain Management SOAP Note Subjective:: Is a pleasant 56-year-old white male who is here for follow-up from right SI joint injection. We are currently treating the patient for right sacroiliitis. Patient states he has had significant relief of his SI joint pain. He states his pain is a 0 out of 10 today. He also states he does have brief moments of pain but he is able to sleep now and walking more. Patient is seeing a chiropractor for his upper back pain. Patient's Mp is [id number]. Is been reviewed and is appropriate. Review of Systems: General: No recent weight changes, no fever, no sleep disturbances Respiratory: No cough, no shortness of air, no recurring pulmonary infections Cardiovascular/peripheral vascular: No chest pain, no palpitations, no edema, no shortness of breath Gastrointestinal: No new onset incontinence, normal bowel movements reported Genitourinary: No new onset incontinence Musculoskeletal: low back pain Psychiatric: [Normal mood/affect] Neurological: [Denies weakness in extremities], [denies balance issues] Objective:: Physical Exam: General: Alert and oriented x3, no acute distress, pleasant and cooperative Lungs: Respirations even and unlabored, symmetrical chest expansion Eyes: PERRL Musculoskeletal: Flexion and extension of lumbar [spine] somewhat guarded secondary to pain, [antalgic gait noted] Neurological: Speech clear, no gross sensory deficit Assessment:: Right sacroiliitis Plan:: Patient Has had significant relief from his right SI joint injection, therefore we will not repeat this injection at this time. Per patient request we will schedule follow-up in 3 months. Patient has been advised to contact the clinic if he would like another SI injection before his follow-up. Patient has been instructed to contact the clinic with any concerns before the next appointment. Dr. Campos has reviewed this note and agrees with this plan of care. This note was dictated using voice recognition software and make contain errors or omissions. [facility] History I have reviewed the patient's past medical history: Yes Medical History: Reports:: Cardiomyopathy, Hyperlipidemia, Hypertension, Myocardial Infarction Denies:: Cancer, Diabetes Mellitus Type 1, Diabetes Mellitus Type 2, Internal Pacemaker, MRSA, Seizures *Have you ever received a pneumonia vaccine?: No *Have you received a flu vaccine this season?: No Other Medical History: Reports: Arthritis, Other Other Surgeries: Yes: Angiogram, Cardiac Catheterization, Cardiac Surgery, Colonoscopy, Other (nonfunctioning loop recorder). No: Pacemaker Amputation: No Fractures: Yes - *Social History Smoking Status: Never smoker Tobacco Type: cigarettes # Packs/Day (cigarettes): 1 #Yrs smoked (if former smoker): 10 Alcohol Intake: never Alcohol Intake Frequency:: other Substance Use Type: denies use *Occupational Status:: employed Housing: house Household Members: other *Travel in the last 8 weeks: Inside the [facility] Family Hx:: Cancer
== END ==
PROVIDERS: Visit Provider Student in an Organized Health Care Education/Training Program
DX: M46.1 Sacroiliitis, not elsewhere classified (principal)
CPT/HCPCS: 99212; G0463

== ENCOUNTER → 2021-12-14 13:26 | Outpatient (CLI) | payer OTHER, SELFPAY ==
--- NOTE | 2021-12-14 13:27 | CA_ITS ---
APPROVED REPORT EXAM: Comprehensive 2D, Doppler, and color-flow Echocardiogram Technical Planner: Meera Donahue CRT Ht: 5 ft 6 in Wt: 216lbs BSA: 2.07 BP: 140/53 mmHg Indications: Shortness of Breath, Hyperlipidemia, Hypertension/HDD, DOT physical Definity ordered Echo Enhancing Agent Indication: Endocardial border delineation Agent(s) / Amount(s) Used: Definity 2 cc 2D Dimensions LVOT 1.77 cm (M/F) 1.5-2.5 LA Volume 28.60 mL LA Volume Index 13.80 mL/m2 (M/F) 16-34 M-Mode Dimensions RVDd 2.17 cm (0.9-2.6) LA Diam 4.00 cm (1.9-4.0) LVDd 4.34 cm (3.5-5.7) Ao Diam 3.81 cm (2.0-3.7) LVDs 2.77 cm (3.5-5.7) IVSd 1.50 cm (0.6-1.1) PWd 1.00 cm (0.6-1.1) EF (Teich) 66.10% FS 36.20% EDV (Teich) 84.90 mL TAPSE 2.43 (<1.7) ESV (Teich) 28.80 mL LV Diastology E Decel Time 253.00 (160-240 msec) E/A Ratio 1.13 MED E' 5.30 (< 7 cm/sec) MED A' 6.30 cm/s E'/MED E' Ratio 8.55 (>14) LAT E' 4.90 (<10 cm/sec) LAT A' 8.20 cm/s E/LAT E' Ratio 9.24 (>14) Mitral Valve MV E Max Joey. 45.00 (40-130 cm/s) MV A Velocity 40.00 (40-130 cm/s) E/A Ratio 1.13 MV Decel. Time 253.00 (160-240 ms) MV PHT 74.00 ms Pulmonary Valve PV Peak Velocity 137.00 (50-150 cm/s) Tricuspid Valve TR P. Velocity 315.00 cm/s RAP Estimate 10.00 mmHg RVSP 49.60 mmHg Left Ventricle Technically difficult study, Definity contrast was utilized to delineate the endocardial surfaces. Left atrium is mildly enlarged, left ventricle is normal size mild concentric left ventricular hypertrophy, estimated ejection fraction 55% with no regional wall motion abnormality, Doppler evidence of grade 2 diastolic dysfunction with tissue Doppler evidence of raise left atrial pressure. Right Ventricle Right atrium and right ventricle are relatively normal size and function. Aortic Valve Aortic valve is minimally thickened and fibrosed there is no aortic stenosis or aortic insufficiency. Mitral Valve Mitral valve grossly normal, there is trace mitral regurgitation. Tricuspid Valve Tricuspid valve grossly normal, there is trace tricuspid regurgitation, calculated right ventricular is 45 mmHg. Pulmonic Valve Pulmonic valve is poorly visualized. Great Vessels Aortic root is normal size. Inferior vena cava is poorly visualized. Pericardium Significant pericardial effusion noted. Conclusion 1. Mildly enlarged left atrium, normal left ventricular size, mild concentric left ventricular hypertrophy, estimated ejection fraction 55% with no regional wall motion abnormality, grade 2 diastolic dysfunction seen with tissue Doppler evidence of raise left atrial pressure. 2. Trace mitral and tricuspid regurgitation. Calculated right ventricular systolic pressure is 45 mmHg. 3. No significant pericardial effusion noted. 4. Inferior vena cava is poorly visualized. Electronically signed by : Kavin Uriostegui MD 12/16/2021 08:54:06
== END ==
PROVIDERS: PCP Emergency Medicine; Visit Provider Physician Assistant
DX: I42.1 Obstructive hypertrophic cardiomyopathy (principal); R94.31 Abnormal electrocardiogram [ECG] [EKG]; E78.2 Mixed hyperlipidemia
CPT/HCPCS: 93306; Q9957

== ENCOUNTER → 2022-08-19 14:45 | Outpatient (CLI) | payer OTHER, SELFPAY ==
[2022-08-19 18:14] LABS: Alanine Aminotransferase 88 U/L (12-78); Albumin Level 4.4 g/dl (3.5-5.0); Albumin/Globulin Ratio 1.7 (1.1-1.8); Alkaline Phosphatase 87 U/L (38-126); Aspartate Amino Transferase 60 U/L (17-59); Bilirubin,Total 0.8 mg/dl (0.2-1.3); Blood Urea Nitrogen 15 mg/dl (9-20); Calcium 8.7 mg/dl (8.4-10.2); Carbon Dioxide 23 mmol/L (22.0-30.0); Chloride 99 mmol/L (98-107); Chol/HDL Ratio 2.7 (1-3.5); Cholesterol 132 mg/dl (140-200); Estimated Glomerular Filt Rate 116 ml/min (>60); GFR (African American) 140 ML/MIN (>60); Globulin 2.6 g/dL (1.3-3.2); Glucose 105 mg/dl (74-100); HDL Cholesterol 49 mg/dl (40-60); Sodium 140 mmol/L (136-145); Triglycerides 93 mg/dl (30-150); VLDL Cholesterol 19 mg/dL (0-40)
[2022-08-19 18:26] LABS: Direct LDL Cholesterol 73.41 mg/dL (100-129)
[2022-08-19 18:43] LABS: Basophils # 0.1 K/mm3 (0-0.2); Eosinophils # 0.2 K/mm3 (0.0-0.4); Hematocrit 41.2 % (42.0-52.0); Hemoglobin 14.1 g/dL (14.1-18.0); Lymphocytes # 1.9 K/mm3 (0.7-4.5); Lymphocytes % 26.6 % (10-50); Mean Corpuscular HGB Conc 34.2 g/dL (31.8-35.4); Mean Corpuscular Hemoglobin 30.6 pg (27.0-31.2); Mean Corpuscular Volume 89.6 fl (80-94); Mean Platelet Volume 9.6 fl (7.4-10.4); Monocytes # 0.7 K/mm3 (0.1-1.0); Monocytes % 10.2 % (1.7-9.3); Neutrophils # 4.4 K/mm3 (1.8-7.8); Neutrophils % 60.2 % (37.0-80.0); Platelet Count 271 K/mm3 (142-424); Red Cell Distribution Width 13.7 % (11.5-17.5); White Blood Count 7.3 K/mm3 (4.8-10.8)
[2022-08-19 18:46] LABS: Prostate Specific Ag Screen 1.2 ng/ml (0.0-4.0); Thyroid Stimulating Hormone 1.27 uIU/mL (0.465-4.68)
[2022-08-19 19:27] LABS: Hemoglobin A1C 5.3 % (4.0-6.0)
== END ==
PROVIDERS: PCP Nurse Practitioner Family; Visit Provider Nurse Practitioner Family
DX: E78.5 Hyperlipidemia, unspecified (principal); I10 Essential (primary) hypertension; M54.9 Dorsalgia, unspecified; R30.9 Painful micturition, unspecified; Z12.5 Encounter for screening for malignant neoplasm of prostate; Z79.899 Other long term (current) drug therapy
CPT/HCPCS: 80053; 80061; 83036; 84443; 85025; G0103

== ENCOUNTER → 2022-11-18 08:40 | Outpatient (CLI) | payer BC, SELFPAY ==
--- NOTE | 2022-11-18 08:41 | CA_ITS ---
APPROVED REPORT EXAM: Comprehensive 2D, Doppler, and color-flow Echocardiogram Senior It Recruiter: Gina Mabry RDCS Ht: 5 ft 6 in Wt: 228lbs BSA: 2.11 BP: 138/74 mmHg Indications: CM,KATHARINA,SOA,ABN EKG,HTN,HLP 2D Dimensions LVOT 1.58 cm (M/F) 1.5-2.5 M-Mode Dimensions RVDd 2.74 cm (0.9-2.6) LA Diam 4.80 cm (1.9-4.0) LVDd 4.35 cm (3.5-5.7) Ao Diam 3.00 cm (2.0-3.7) LVDs 3.18 cm (3.5-5.7) IVSd 1.17 cm (0.6-1.1) PWd 1.08 cm (0.6-1.1) EF (Teich) 52.80% FS 26.90% EDV (Teich) 85.40 mL ESV (Teich) 40.30 mL LV Diastology E Decel Time 263.00 (160-240 msec) E/A Ratio 1.3 MED E' 4.70 (< 7 cm/sec) E'/MED E' Ratio 21.40 (>14) LAT E' 5.10 (<10 cm/sec) E/LAT E' Ratio 19.73 (>14) Mitral Valve MV E Max Joey. 101.00 (40-130 cm/s) MV A Velocity 78.00 (40-130 cm/s) E/A Ratio 1.29 MV Decel. Time 263.00 (160-240 ms) MV PHT 77.00 ms Left Ventricle The left ventricle is normal size. The left ventricular systolic function is normal. The left ventricular ejection fraction is within the normal range. There is increased LV wall thickness. There is normal LV segmental wall motion. The left ventricular diastolic function is normal. LVEF is 60%. Right Ventricle The right ventricle is normal size. The right ventricular systolic function is normal. Atria The left atrium size is normal. The right atrium size is normal. There is no Doppler evidence of interatrial shunt. Aortic Valve The aortic valve is mildly thickened. The aortic valve opens well. There is no aortic valvular stenosis. No aortic regurgitation is present. Mitral Valve The mitral valve is mildly thickened. No evidence of mitral valve stenosis. Mild mitral regurgitation. Tricuspid Valve The tricuspid valve leaflets are thin and pliable. Mild tricuspid regurgitation. RVSP is normal. Pulmonic Valve The pulmonary valve is normal in structure. Trace pulmonic regurgitation. Great Vessels The aortic root is normal in size. The ascending aorta is normal in size. IVC is normal in size and collapses >50% with inspiration. Pericardium There is no pericardial effusion. Other Information Study Quality: Adequate Conclusion Normal biventricular systolic function. No significant valvular disease. Electronically signed by : Aurora Flowers, 11/19/2022 12:43:27
== END ==
PROVIDERS: PCP Nurse Practitioner Family; Visit Provider Physician Assistant
DX: I42.1 Obstructive hypertrophic cardiomyopathy (principal); E78.2 Mixed hyperlipidemia; R94.31 Abnormal electrocardiogram [ECG] [EKG]
CPT/HCPCS: 93306

== ENCOUNTER 2023-09-25 09:43 | Outpatient (CLI) | payer BC, SELFPAY ==
[2023-09-25 18:58] LABS: Basophils % 0.6 % (0.1-2.0); Eosinophils # 0.1 K/mm3 (0.0-0.4); Eosinophils % 2.3 % (0.1-12.0); Hematocrit 42.1 % (42.0-52.0); Hemoglobin 14.6 g/dL (14.1-18.0); Lymphocytes # 1.8 K/mm3 (0.7-4.5); Lymphocytes % 28.3 % (10-50); Mean Corpuscular HGB Conc 34.6 g/dL (31.8-35.4); Mean Corpuscular Hemoglobin 30.9 pg (27.0-31.2); Mean Corpuscular Volume 89.4 fl (80-94); Mean Platelet Volume 9.6 fl (7.4-10.4); Monocytes # 0.8 K/mm3 (0.1-1.0); Monocytes % 12.9 % (1.7-9.3); Neutrophils # 3.5 K/mm3 (1.8-7.8); Neutrophils % 55.9 % (37.0-80.0); Platelet Count 245 K/mm3 (142-424); Red Blood Count 4.72 M/mm3 (4.60-6.20); Red Cell Distribution Width 13.3 % (11.5-17.5); White Blood Count 6.3 K/mm3 (4.8-10.8)
[2023-09-25 19:31] LABS: Alanine Aminotransferase 78 U/L (12-78); Albumin Level 4.4 g/dl (3.5-5.0); Albumin/Globulin Ratio 1.5 (1.1-1.8); Alkaline Phosphatase 79 U/L (38-126); Anion Gap 14.1 mEq/L (5-15); Aspartate Amino Transferase 56 U/L (17-59); Bilirubin,Total 0.8 mg/dl (0.2-1.3); Blood Urea Nitrogen 21 mg/dl (9-20); Calcium 9.5 mg/dl (8.4-10.2); Carbon Dioxide 25 mmol/L (22.0-30.0); Chloride 103 mmol/L (98-107); Chol/HDL Ratio 4.1 (1-3.5); Cholesterol 145 mg/dl (140-200); Estimated Glomerular Filt Rate 99 ml/min (>60); GFR (African American) 120 ML/MIN (>60); Globulin 2.9 g/dL (1.3-3.2); Glucose 107 mg/dl (74-100); HDL Cholesterol 35 mg/dl (40-60); Potassium 4.1 mmoL/L (3.5-5.1); Sodium 138 mmol/L (136-145); Total Protein,Serum 7.3 g/dl (6.3-8.2); Triglycerides 59 mg/dl (30-150); VLDL Cholesterol 12 mg/dL (0-40)
[2023-09-25 19:48] LABS: Hemoglobin A1C 5.4 % (4.0-6.0)
[2023-09-25 19:51] LABS: Direct LDL Cholesterol 87.19 mg/dL (100-129)
[2023-09-25 19:55] LABS: 25-OH Vitamin D, Total 38.2 ng/mL (30-100)
[2023-09-25 20:08] LABS: Prostate Specific Ag Screen 1.1 ng/ml (0.0-4.0)
[2023-09-25 20:10] LABS: Microalbumin/Creatinine Ratio 7.4
[2023-09-25 20:15] LABS: Creatinine,Urine Random 269 mg/dL (Not Estab.)
== END 2023-09-25 23:59 | disposition home or self-care (01) ==
LOC: LAB.DROPOF 09-26 09:43
PROVIDERS: PCP Internal Medicine; Visit Provider Internal Medicine
DX: E78.5 Hyperlipidemia, unspecified (principal); R53.83 Other fatigue; I42.9 Cardiomyopathy, unspecified; G47.33 Obstructive sleep apnea (adult) (pediatric)
CPT/HCPCS: 80053; 80061; 82043; 82306; 82570; 83036; 85025; G0103

== ENCOUNTER 2023-10-22 09:32 | Outpatient (CLI) | payer BC, SELFPAY | END 2023-10-22 23:59 | disposition home or self-care (01) | LOC: LAB.DROPOF 10-23 09:32 | PROVIDERS: PCP Nurse Practitioner; Visit Provider Nurse Practitioner | DX: B35.1 Tinea unguium (principal); L60.3 Nail dystrophy; M79.675 Pain in left toe(s) | CPT/HCPCS: 87102; 87206; 87220 ==

== ENCOUNTER 2023-11-26 08:44 | Outpatient (CLI) | payer BC, SELFPAY ==
--- NOTE | 2023-11-26 08:45 | CT_ITS ---
APPROVED REPORT Senior Business Development Analyst: CLINICAL INDICATION Chest Pain TECHNIQUE Image Acquisition: A 128 slice MDCT scanner (Lolaya View) was used for data acquisition. A noncontrast coronary calcium scan was performed. A CT attenuation threshold of 130 Hounsfield units (HU) was used for the detection of calcium in contiguous voxels of 1 sq mm in area to be counted as individual lesions. Bolus tracking in the ascending aorta with a threshold of 180 HU was performed. Immediately afterwards, ECG synchronized cardiac CT was then performed from the cardiac base to apex using retrospective gating with ECG tube current modulation. A total of 85 mL of Isovue 370 mg/mL contrast medium was administered at 5 mL/sec followed by a saline flush using a biphasic injection protocol. A tube voltage of 120 KVp was used. The patient received the following medications prior to the cardiac CT. 0.4 mg of sublingual nitroglycerin The average heart rate at the time of acquisition was 48 bpm and regular. Image Reconstruction Transaxial images were reconstructed at 0.67 mm slide thickness. Data was reviewed interactively on an advanced workstation capable of 2 and 3-dimensional displays in all conventional reconstruction formats, including multiplanar reformations, maximum intensity projections, curved multiplanar reformations, and volume rendered reconstructions. When applicable, selected routine images describing the relevant coronary anatomy and pathology were saved and sent to PACS. Complications None Technical Quality Overall image quality was good. Coronary artery opacification was adequate. Total DLP (Dose-Length Product) is 1567.1 mGy-cm. The reported value represents the total of one or more individual components during the CT acquisition of this date and at this time, and as such, the same value may appear in more than one CT report depending on the interpreting/reporting physicians. COMPARISON None FINDINGS CT Coronary Calcium Scoring LMA (Left Main Artery) = 38 LAD (Left Anterior Descending) = 15 LCX (Left Coronary Circumflex) = 0 RCA (Right Coronary Artery) = 0 Total Calcium Score = 53 using the AJ-130 method. The observed calcium score of 53 is at 61st percentile for subjects of the same age, sex, and race/ethnicity. The interpretation of the calcium heart score is based on the following continuum*: 0 = no calcified plaque detected (risk of coronary artery disease is very low ??? less than 5%) 1-10 = calcium detected in extremely minimal levels (risk of coronary diseases is still low ??? less than 10%) 11-100 = mild levels of plaque detected with certainty (mild or minimal narrowing of heart arteries is likely) 101-400 = definite,at least moderate levels of plaque detected (relatively high risk of a heart attack within 3-5 years) >401-999 = extensive levels of plaque detected (high risk of heart attack, high levels of vascular disease are present, high likelihood of at least one significant coronary narrowing) *The calcium heart score quantifies the burden of coronary calcification/plaque in the coronary arteries. The calcium heart score is not able to evaluate the presence or burden of non-calcified (i.e. soft) plaque. There is no identifiable calcification in the aortic valve, mitral annulus or mitral valve, pericardium, or myocardium. Coronary CT Angiography The coronary arterial system is left dominant. Quantitative Stenosis Grading: Left Main (LM): The left main originates normally from the left sinus of Valsalva. The LM bifurcates into the left anterior descending artery and left circumflex artery. There is a focus of mild calcification in the proximal LM segment, with no evidence of luminal stenosis. Left Anterior Descending (LAD) and Diagonal Branches: The LAD gives off 2 diagonal branch(es). There is a focus of mild calcification at the bifurcation of the LAD with the first diagonal branch, with no evidence of luminal stenosis.. There is no evidence of LAD-myocardial bridge. Left Circumflex (LCX) and Obtuse Marginals (OM): The LCX gives off 2 Obtuse Marginal (OM) branch(es). The LCX and its branches are patent with no evidence of atherosclerosis. Right Coronary Artery (RCA): The RCA is a small caliber vessel. The RCA originates normally from the right sinus of Valsalva. The RCA and its branches are patent with no evidence of atherosclerosis. Non-Coronary Cardiac Findings: Analysis of the left ventricular (LV) structure and function was performed after 3-D reconstruction of the LV from axial images, with user-corrected automatic contouring for assessment of LV volumes and user-defined reconstruction from oblique planes for measurement of 3-D cardiac structure and function. -The left ventricle systolic function is normal. -There is no left atrial appendage filling defect. Two right pulmonary veins and two left pulmonary veins drain normally into the left atrium. -No pericardial thickening or calcification. -Central and branch pulmonary arteries in the [id number] are unremarkable. -Thoracic aorta within the visualized thoracic aortic-branches in the [id number] is unremarkable. Extracardiac Structures No significant extra-cardiac findings. Note, however, that this study is focused on the cardiac findings. IMPRESSION -Presence of coronary calcification with an Agatston score = 53 using the AJ-130 method. -The observed calcium score of 53 is at 61st percentile for subjects of the same age, sex, and race/ethnicity. -No evidence of significant flow-limiting atherosclerosis of the coronary arteries. -CAD-RADS 1. Management recommendations per ACC/AHA guidelines*, as clinically appropriate. *Recommendations: CAD RADS 0: Reassurance. Consider non-atherosclerotic causes of chest pain. CAD RADS 1: Consider non-atherosclerotic causes of chest pain. Consider preventive therapy and risk factor modification. CAD RADS 2: Consider non-atherosclerotic causes of chest pain. Consider preventive therapy and risk factor modification, particularly for patients with nonobstructive plaque in multiple segments. CAD RADS 3: Consider further functional testing. Consider symptom-guided anti-ischemic and preventive pharmacotherapy as well as risk factor modification per published guideline statements. CAD RADS 4A: Consider further functional testing or invasive coronary angiography with revascularization per published guideline statements. Consider symptom-guided anti-ischemic and preventive pharmacotherapy as well as risk factor modification per published guideline statements. CAD RADS 4B: Invasive coronary angiography recommended with revascularization per published guideline statements. Consider symptom-guided anti-ischemic and preventive pharmacotherapy as well as risk factor modification per published guideline statements. CAD RADS 5: Consider invasive angiography and/or viability assessment with revascularization per published guideline statements. Consider symptom-guided anti-ischemic and preventive pharmacotherapy as well as risk factor modification per published guideline statements. CRITICAL RESULT None COMMUNICATION Per this written report The coronary and cardiac findings of this CCTA were reviewed, reported, and signed by Frank Flowers MD ([employer]icket [employer]) Conclusion Electronically signed by : Aurora Flowers MD 11/27/2023 16:04:18
[2023-11-26 09:02] VITALS: BMI 35.5
[2023-11-26 09:21] VITALS: BP 129/64; PULSE 53; RESP 18; TEMP 36.7; O2SAT 98
[2023-11-26 09:42] LABS: Chloride 107 mmol/L (98-107); Potassium 4.4 mmoL/L (3.5-5.1); Sodium 137 mmol/L (136-145)
[2023-11-26 09:45] LABS: Anion Gap 9.4 mEq/L (5-15); Blood Urea Nitrogen 17 mg/dl (9-20); Calcium 8.7 mg/dl (8.4-10.2); Carbon Dioxide 25 mmol/L (22.0-30.0); Creatinine Clearance Estimated 125 mL/min (50-200); Estimated Glomerular Filt Rate 86 ml/min (>60); GFR (African American) 105 ML/MIN (>60); Glucose 100 mg/dl (74-100)
[2023-11-26 10:08] VITALS: BP 156/90; PULSE 54; O2SAT 99
[2023-11-26 10:11] VITALS: BP 107/62; PULSE 54; O2SAT 99
[2023-11-26] MEDS: 0.9 % SODIUM CHLORIDE 50 ML VIAL IV (10:11)
[2023-11-26] MEDS: SODIUM CHLORIDE 0.9% 10ML SYR (RAD ONLY) 10 ML IV (10:11)
[2023-11-26] MEDS: NITROGLYCERIN 0.4MG SL TABLET SL (10:11)
[2023-11-26] MEDS: IOPAMIDOL-370 (76%);100ML BOTTLE 85 ML IV (10:11)
[2023-11-26 10:14] VITALS: BP 119/69; PULSE 52; O2SAT 99
[2023-11-26 10:17] VITALS: BP 101/50; PULSE 57; O2SAT 99
[2023-11-26 10:21] VITALS: BP 104/55; PULSE 51; O2SAT 99
== END 2023-11-26 10:21 | disposition home or self-care (01) ==
PROVIDERS: PCP Internal Medicine; Visit Provider Nurse Practitioner
DX: I42.1 Obstructive hypertrophic cardiomyopathy (principal); R93.1 Abnormal findings on diagnostic imaging of heart and coronary circulation; R94.31 Abnormal electrocardiogram [ECG] [EKG]; I10 Essential (primary) hypertension; E78.2 Mixed hyperlipidemia; G47.33 Obstructive sleep apnea (adult) (pediatric); E66.9 Obesity, unspecified; Z68.35 Body mass index [BMI] 35.0-35.9, adult; Z02.4 Encounter for examination for driving license
CPT/HCPCS: 75574; 80048; Q9967

== ENCOUNTER 2024-08-10 08:54 | Outpatient (CLI) | payer BC, SELFPAY ==
[2024-08-10 09:09] LABS: Microscopic, Urine URINE MICROSCOPIC (MICROSCOPIC)
[2024-08-10 09:37] LABS: Basophils % 0.6 % (0.1-2.0); Eosinophils # 0.2 Kmm3 (0.0-0.4); Eosinophils % 2.4 % (0.1-12.0); Hematocrit 38.5 % (42.0-52.0); Hemoglobin 13.7 g/dL (14.1-18.0); Immature Granulocytes # 0.02 10^3uL; Immature Granulocytes % 0.3 %; Lymphocytes # 1.4 K/mm3 (0.7-4.5); Lymphocytes % 20.4 % (10-50); Mean Corpuscular HGB Conc 35.6 g/dL (31.8-35.4); Mean Corpuscular Hemoglobin 30.6 pg (27.0-31.2); Mean Corpuscular Volume 86.1 fl (80-94); Monocytes # 0.7 K/mm3 (0.1-1.0); Monocytes % 10.7 % (1.7-9.3); Neutrophils # 4.4 K/mm3 (1.8-7.8); Neutrophils % 65.6 % (37.0-80.0); Nucleated Red Blood Cells # 0 10^3/uL; Nucleated Red Blood Cells % 0 %; Platelet Count 198 K/mm3 (142-424); Red Blood Count 4.47 M/mm3 (4.60-6.20); Red Cell Distribution Width 12.4 % (11.5-17.5); Red Cell Distribution Width-SD 38.8 fL; White Blood Count 6.8 K/mm3 (4.8-10.8)
[2024-08-10 10:05] LABS: Appearance,Urine CLEAR (Clear); Blood, Urine 1+ (Negative); Color,Urine YELLOW (Yellow); Glucose,Urine (UA) Negative (Negative); Ketones,Urine TRACE (Negative); Leukocyte Esterase,Urine TRACE (Negative); Nitrate,Urine Negative (Negative); Protein,Urine TRACE (Negative); Specific Gravity, Urine 1.025 (1.005-1.030)
[2024-08-10 10:08] LABS: Hemoglobin A1C 5.2 % (4.0-6.0)
[2024-08-10 10:10] LABS: Bilirubin,Urine 1+ (Negative)
[2024-08-10 10:13] LABS: Albumin Level 4.2 g/dl (3.5-5.0); Chloride 109 mmol/L (98-107); Sodium 138 mmol/L (136-145)
[2024-08-10 10:14] LABS: Potassium 4.3 mmoL/L (3.5-5.1)
[2024-08-10 10:16] LABS: Alanine Aminotransferase 35 U/L (12-78); Albumin/Globulin Ratio 1.8 (1.1-1.8); Alkaline Phosphatase 100 U/L (38-126); Anion Gap 9.3 mEq/L (5-15); Aspartate Amino Transferase 34 U/L (17-59); Bilirubin,Total 0.7 mg/dl (0.2-1.3); Blood Urea Nitrogen 25 mg/dl (9-20); Carbon Dioxide 24 mmol/L (22.0-30.0); Cholesterol 136 mg/dl (140-200); Estimated Glomerular Filt Rate 99 ml/min (>60); GFR (African American) 119 ML/MIN (>60); Globulin 2.4 g/dL (1.3-3.2); Total Protein,Serum 6.6 g/dl (6.3-8.2); Triglycerides 185 mg/dl (30-150); VLDL Cholesterol 37 mg/dL (0-40)
[2024-08-10 10:17] LABS: Calcium 8.7 mg/dl (8.4-10.2); Chol/HDL Ratio 4.4 (1-3.5); Glucose 117 mg/dl (74-100); HDL Cholesterol 31 mg/dl (40-60)
[2024-08-10 10:27] LABS: Direct LDL Cholesterol 75.26 mg/dL (100-129)
[2024-08-10 10:28] LABS: WBC,Urine Occasional #/hpf (0-3)
[2024-08-10 10:46] LABS: Thyroid Stimulating Hormone 0.98 uIU/mL (0.465-4.68)
== END 2024-08-10 23:59 | disposition home or self-care (01) ==
LOC: LAB 08:55
PROVIDERS: PCP Internal Medicine; Visit Provider Internal Medicine
DX: Z00.00 Encounter for general adult medical examination without abnormal findings (principal)
CPT/HCPCS: 36415; 80053; 80061; 81001; 83036; 84443; 85025; G0103

== ENCOUNTER 2024-11-17 07:56 | Outpatient (CLI) | payer BC, SELFPAY ==
--- OUTSIDE RECORDS SUMMARY | 2024-11-17 07:58 | XMS_ITS | Clinical Summary ---
Author Organization [facility] Address [address] [place] [address] Phone Care Team Providers Care Enterprise Manager Name Role Phone Unavailable Primary Care Provider Unavailabl e Social History Tobacco Use Types Packs/Day Years Used Date Smoking Tobacco: Never Assessed Sex and Gender Information Value Date Recorded Sex Assigned at Not on file Legal Sex Male 2:53 PM EDT Gender Identity Not on file Sexual Orientation Not on file Plan of Treatment Health Maintenance Due Date Last Done Comments Annual Wellness Exam 06/07/1967 Hepatitis C Screening 1982 DTaP/TDaP/Td (1 - Tdap) 06/07/1983 Cologuard 2009 Colon Cancer Screening 2009 Colonoscopy 2009 FIT 2009 Sigmoidoscopy 2009 Virtual Colonography 2009 Pneumococcal Vaccine 50+ (1 of 1 - PCV) 2014 Zoster (1 of 2) 2014 COVID-19 Vaccine (2023-2 5 season) 2023 Influenza Vaccine (#1) 2024 Hepatitis B Vaccine Aged Out No longe r eligible based on patient's age to complete this topic Meningococcal B Vaccine Aged Out No l onger eligible based on patient's age to complete this topic Medical Devices Implanted Type Area Preanalytics Team Lead Device Identifier Shelf Expiration Date Model / Serial / Lot Linq-02/06/2017 Implanted:2016 (Quantity not on file) [employer] LINQ / [id number] / Insurance [employer] POS
--- OUTSIDE RECORDS SUMMARY | 2024-11-17 07:58 | XMS_ITS | Clinical Summary ---
Author Organization Healthcare Address [address] [place] [address] Care Team Providers Care Dairy Truck Driver Name Role Phone Gonzalo Ram MD Primary Care Provider [phone] Family History Medical History Relation Name Comments Cardiac disorder Other 1 Conversions - Other Other 2 cardiac pacemaker Relation Name Status Comments Other 1 Other 2 Social History Tobacco Use Types Packs/Day Years Used Date Smoking Tobacco: Former Alcohol Use Standard Drinks/Week Comments Yes 0 (1 standard drink = 0.6 oz pure alcohol) Alcoholic Drinks/day: Social alcohol use Sex and Gender Information Value Date Recorded Sex Assigned at Not on file Legal Sex Male 6:41 PM EDT Gender Identity Not on file Sexual Orientation Not on file Last Filed Vital Signs Vital Sign Reading Time Taken Comments Blood Pressure 126/72 04/28/2017 1:47 PM EST Pulse 81 04/28/2017 1:47 PM EST Temperature - - Respiratory Rate - - Oxygen Saturation - - Inhaled Oxygen Concentration - - Weight 99.3 kg (219 lb 0.1 oz) 04/28/2017 1:47 P M EST Height 167.6 cm (5' 6 ) 04/28/2017 1:47 PM EST Body Mass Index 35.35 04/28/2017 1:47 PM EST Plan of Treatment Not on file Care Teams Dairy Truck Driver Relationship Specialty Start Date End Date Gonzalo Ram MD [address] [place] [address] PCP - General 08/11/20
--- NOTE | 2024-11-17 08:00 | CA_ITS ---
APPROVED REPORT EXAM: Comprehensive 2D, Doppler, and color-flow Echocardiogram Imaging System Administrator: Erika Fine, RCS, RVS Ht: 5 ft 6 in Wt: 228lbs BSA: 2.11 BP: 120/73 mmHg Indications: CAD, Abn EKG, NSTEMI 2D Dimensions IVSd 0.86 cm M: 0.6-1.2 LVEF (Visual) 69.50 % PWd 0.89 cm M: 0.6 - 1.2 LA Volume 70.90 mL LVDd 4.61 cm M: 4.2 - 5.9 LA Volume Index 33.44 mL/m2 (M/F) 16-34 LVDs 2.81 cm M: 2.5 - 4.0 Left Atrium 3.45 cm M: 3.0 - 4.0 M-Mode Dimensions RVDd 1.53 cm (0.9-2.6) LA Diam 4.60 cm (1.9-4.0) LVDd 5.61 cm (3.5-5.7) LVDs 3.02 cm (3.5-5.7) IVSd 0.85 cm (0.6-1.1) PWd 0.98 cm (0.6-1.1) EF (Teich) 76.90% EPSs 1.04 cm FS 46.20% EDV (Teich) 154.30 mL TAPSE 2.47 (<1.7) ESV (Teich) 35.60 mL LV Diastology E Decel Time 223 (160-240 msec) E/A Ratio 0.76 MED A' 6.80 cm/s LAT A' 9.50 cm/s Aortic Valve CHARLA Index 1.17 cm2/m2 AoV Peak Joey. 158.0 (50-130 cm/s) AO Peak GR. 10.00 mmHg AO Mean GR. 5.00 (<5 mmHg) AO VTI 29.0 (18-25 cm) CHARLA (VTI) 2.54 (2.5-4.5 cm2) Mitral Valve MV A Velocity 90.0 (40-130 cm/s) E/A Ratio 0.76 Tricuspid Valve TR P. Velocity 264.00 cm/s RAP Estimate 10.00 mmHg RVSP 38.00 mmHg Left Ventricle The left ventricle is normal size. Left ventricular systolic function is normal. The left ventricular ejection fraction is within the normal range. There is increased left ventricular wall thickness. There is normal LV segmental wall motion. The left ventricular diastolic function is indeterminate. LVEF is 60% Right Ventricle The right ventricle is normal size. The right ventricular systolic function is normal. Atria The left atrium size is normal. The right atrium size is normal. There is no color Doppler evidence of interatrial shunt. Aortic Valve The aortic valve is mildly thickened. There is no hemodynamically significant aortic valvular stenosis. No aortic regurgitation is present. Mitral Valve The mitral valve is normal in structure. No evidence of mitral valve stenosis. Trace mitral regurgitation is present. Tricuspid Valve The tricuspid valve leaflets are thin and pliable. Mild tricuspid regurgitation. RVSP is 25-30 mmHg. Pulmonic Valve The pulmonary valve is grossly normal in structure. Trace pulmonic valve regurgitation is present. Great Vessels The aortic root is normal in size. IVC is normal in size and collapses >50% with inspiration. Pericardium There is no pericardial effusion. Other Information Study Quality: Fair Conclusion Normal biventricular systolic function. Mild TR. Electronically signed by : Aurora Flowers MD 11/19/2024 18:54:59
== END 2024-11-17 23:59 | disposition home or self-care (01) ==
LOC: RT 07:56
PROVIDERS: PCP Internal Medicine; Visit Provider Physician Assistant
DX: R94.31 Abnormal electrocardiogram [ECG] [EKG] (principal); I25.10 Atherosclerotic heart disease of native coronary artery without angina pectoris; I25.2 Old myocardial infarction; I08.8 Other rheumatic multiple valve diseases
CPT/HCPCS: 93306